=== PATIENT | female | born 1965 | race Caucasian/White ===

== ENCOUNTER 2020-03-01 08:14 | Outpatient (CLI) | payer MEDICARE, SELFPAY ==
--- NOTE | 2020-03-01 08:17 | ECG_ITS ---
Measurements Intervals [place] Rate: 84 P: 44 MA: 124 QRS: -5 QRSD: 86 T: 34 QT: 355 QTc: 422 Interpretive Statements SINUS RHYTHM EARLY PRECORDIAL R/S TRANSITION BASELINE ARTIFACT- II, III, AVR, AVL, AVF BORDERLINE ECG Electronically Signed On 03-01-2020 8:49:14 CDT by El Peters D.O.
== END 2020-03-01 08:15 | disposition home or self-care (01) ==
PROVIDERS: PCP Family Medicine; Visit Provider Obstetrics & Gynecology
DX: I10 Essential (primary) hypertension (principal); R94.31 Abnormal electrocardiogram [ECG] [EKG]
CPT/HCPCS: 93005

== ENCOUNTER 2020-03-07 00:49 | Outpatient (CLI) | payer MEDICARE, SELFPAY ==
[2020-03-09 13:29] LABS: SARS-CoV-2 RNA PCR Negative
== END 2020-03-07 00:50 | disposition home or self-care (01) ==
LOC: ANHIMG 00:50
PROVIDERS: Obstetrics & Gynecology; PCP Family Medicine; Visit Provider Family Medicine
DX: Z01.812 Encounter for preprocedural laboratory examination (principal); Z11.59 Encounter for screening for other viral diseases
CPT/HCPCS: 87635; C9803; U0003

== ENCOUNTER 2020-03-09 08:45 | Outpatient (CLI) | payer MEDICARE, SELFPAY ==
[2020-03-09 18:06] LABS: SARS-CoV-2 RNA PCR Negative
== END 2020-03-09 09:30 | disposition home or self-care (01) ==
PROVIDERS: PCP Family Medicine; Visit Provider Obstetrics & Gynecology
DX: Z01.812 Encounter for preprocedural laboratory examination (principal); Z11.59 Encounter for screening for other viral diseases
CPT/HCPCS: 87635; C9803; U0003

== ENCOUNTER 2020-03-11 02:03 | Day surgery (SDC) | payer MEDICARE, SELFPAY ==
[2020-02-25 14:03] VITALS: BMI 28.3
--- NOTE | 2020-03-11 10:07 | WPDANESEPPF ---
Anes - Initial Pre Proc Eval Procedure: Operation Date: 03/11/20 11:30 Proposed Procedures p Hysteroscopy, Dilation and Curettage - Luis Manuel Ridley MD Date/Time: 03/11/20 10:07 Surgeon: Luis Manuel Ridley MD Pre Op Diagnosis: menometrorrhagia Patient Data Age: 54 Gender: F Height: 5 ft 3 in Weight: 72.57 kg Allergies Allergy/AdvReac Type Severity Reaction Status Date / Time No Known Allergies Allergy Verified 02/25/20 14:04 Home Medications Medication Instructions Recorded Confirmed Type amlodipine 5 mg tablet 5 mg PO DAILY 11/12/19 03/11/20 History escitalopram oxalate 20 mg tablet 20 mg PO DAILY 11/12/19 03/11/20 History lorazepam 1 mg tablet 1 mg PO TID PRN 11/12/19 03/11/20 History ziprasidone HCl 40 mg capsule 40 mg PO .QHS cap 11/12/19 02/25/20 History ziprasidone HCl 80 mg capsule 80 mg PO QAM cap 11/12/19 02/25/20 History zolpidem 10 mg tablet 10 mg PO HS tablet 11/12/19 02/25/20 History atorvastatin 20 mg tablet 20 mg PO DAILY #90 tablet 02/02/20 02/25/20 Rx quinapril 40 mg tablet 40 mg PO DAILY #90 tablet 02/02/20 02/25/20 Rx aspirin 81 mg PO DAILY 02/25/20 03/11/20 History biotin 1,000 mcg PO DAILY 02/25/20 03/11/20 History cholecalciferol (vitamin D3) 50 mcg PO DAILY 02/25/20 02/25/20 History [Vitamin D3] flaxseed oil 1,000 mg PO DAILY 02/25/20 02/25/20 History multivitamin 2 tablet PO DAILY 02/25/20 03/11/20 History quinapril 20 mg PO QPM 02/25/20 02/25/20 History vitamin E 1,000 unit PO DAILY 02/25/20 02/25/20 History Patient hx anesthesia problems: none Family hx anesthesia problems: none PMFSH Past Medical History Medical History (Updated 03/11/20 @ 10:03 by Obinna Zelaya MD) Bipolar affective disorder, current episode mixed Essential hypertension Pure hypercholesterolemia Family History Family History (Updated 03/30/16 @ 23:19 by DOCTOR UNKNOWN) Mother Family history of malignant neoplasm of breast in first degree relative Social History Social History (Updated 11/13/19 @ 08:06 by Jacqueline Lakhani) Smoking status: Never smoker Second hand tobacco smoke exposure: No Alcohol intake: current Substance use: never Substance use type: does not use Gender identity (if verbalized by the patient): Female Anes - Eval Final PreProcedure Day of Procedure 03/11/20 10:07 Patient weight: normal Heart: regular rate and rhythm Lungs: clear to auscultation Airway: Mallampati scale class II Neurological: alert and oriented Last oral intake: >/= 8 hours ASA classification: II Emergent: no Anesthetic plan: proceed Anesthesia type and monitoring: general GIVS and standard monitoring Informed Consent: The patient's anesthetic plan and its attendant risks and benefits were discussed with the patient/family/POA. Questions were solicited and answers provided to the satisfaction of the patient/family/POA.
[2020-03-11 10:08] VITALS: BP 116/67; PULSE 89; RESP 18; TEMP 36.8; O2SAT 91
[2020-03-11] MEDS: ACETAMINOPHEN 500 MG TABLET 1000 MG PO (10:10)
[2020-03-11] MEDS: LACTATED RINGERS 1,000 ML 30 ML IV CONT (10:10)
--- NOTE | 2020-03-11 11:19 | PM.IMHP ---
H&P: HPI History of Present Illness Chief complaint: menometrorrhagia Narrative: Danuta Baker is a 54 year old female presents for hysteroscopic evaluation of endometrial abnormality found on ultrasound. Ultrasound was ordered due to enlarged uterus on exam though she has had no bleeding or any other significant pain. She also is known to have bicornuate uterus though the irregularity of the endometrial cavity does still need to be evaluated with hysteroscopic exam. Review of Systems Review of Systems: All systems reviewed & are unremarkable except as noted in HPI and below PMFSH Past Medical History Medical History Bipolar affective disorder, current episode mixed Essential hypertension Pure hypercholesterolemia Family History Family History Mother Family history of malignant neoplasm of breast in first degree relative Social History Social History Smoking status: Never smoker Second hand tobacco smoke exposure: No Alcohol intake: current Substance use: never Substance use type: does not use Gender identity (if verbalized by the patient): Female Meds Home Medications and Allergies Home Medications Medication Instructions Recorded Confirmed Type amlodipine 5 mg tablet 5 mg PO DAILY 11/12/19 03/11/20 History escitalopram oxalate 20 mg tablet 20 mg PO DAILY 11/12/19 03/11/20 History lorazepam 1 mg tablet 1 mg PO TID PRN 11/12/19 03/11/20 History ziprasidone HCl 40 mg capsule 40 mg PO .QHS cap 11/12/19 02/25/20 History ziprasidone HCl 80 mg capsule 80 mg PO QAM cap 11/12/19 02/25/20 History zolpidem 10 mg tablet 10 mg PO HS tablet 11/12/19 02/25/20 History atorvastatin 20 mg tablet 20 mg PO DAILY #90 tablet 02/02/20 02/25/20 Rx quinapril 40 mg tablet 40 mg PO DAILY #90 tablet 02/02/20 02/25/20 Rx aspirin 81 mg PO DAILY 02/25/20 03/11/20 History biotin 1,000 mcg PO DAILY 02/25/20 03/11/20 History cholecalciferol (vitamin D3) 50 mcg PO DAILY 02/25/20 02/25/20 History [Vitamin D3] flaxseed oil 1,000 mg PO DAILY 02/25/20 02/25/20 History multivitamin 2 tablet PO DAILY 02/25/20 03/11/20 History quinapril 20 mg PO QPM 02/25/20 02/25/20 History vitamin E 1,000 unit PO DAILY 02/25/20 02/25/20 History Allergies Allergy/AdvReac Type Severity Reaction Status Date / Time No Known Allergies Allergy Verified 02/25/20 14:04 Vital Signs Vital Signs - 24 hr 03/11/20 10:08 Temperature 36.8 C Pulse Rate 89 Respiratory Rate 18 Blood Pressure 116/67 Pulse Oximetry 91 Exam Const: General: no acute distress Resp: Auscultation: clear to auscultation bilaterally Cardio: Rate: regular rate Rhythm: regular rhythm GI: GI Palp: Yes Soft to palpation : External Female Exam: normal external appearance Other: Uterus adnexa without abnormality. Assessment and Plan Assessment and plan (1) Abnormal endometrial ultrasound: Code(s): R93.5 - Abnormal findings on diagnostic imaging of other abdominal regions, including retroperitoneum Status: Acute Additional Plan Hysteroscopy with tissue sampling.
[2020-03-11] MEDS: ceFAZolin 2 GM/D5W 50 ML 2 GM/50 ML BAG IVPB (11:28)
[2020-03-11] MEDS: KETOROLAC 30 MG/ML VIAL (*BKC) IV PUSH (11:46)
--- NOTE | 2020-03-11 11:50 | PM.OP ---
Procedure Note - Brief Procedure Note - Brief Date of procedure: 03/11/20 Pre-op diagnosis: menometrorrhagia Endometrial abnormality Post-op diagnosis: same Procedure performed: Hysteroscopy with uterine curettings Description of procedure: Patient prepped and draped in usual manner for this procedure cervix was dilated to allow the hysteroscope to be placed which did reveal atrophic endometrial cavity there was some scarring throughout. Also a bicornuate uterus was noted. Curettings were obtained at this point seizure was considered terminated patient are procedure well sent to recovery room in stable condition. Anesthesia: GLMA Surgeon: Luis Manuel Ridley MD Estimated blood loss (mL): 5 Drains: No Packing: No Pathology: yes Complications: No immediate complications Condition: stable Disposition: PACU Findings: Atrophic endometrial cavity with bicornuate uterus noted. Also some evidence of scarring though no specific abnormalities were appreciated.
[2020-03-11 11:56] VITALS: BP 112/61; PULSE 66; RESP 16; O2SAT 96
[2020-03-11 12:25] VITALS: BP 113/67; PULSE 67; RESP 16; O2SAT 100
[2020-03-11 12:50] VITALS: BP 121/70; PULSE 70; RESP 18
--- NOTE | 2020-03-11 14:01 | SUR.PHASEII ---
1230; PT'S MOTHER CALLED. STATES SHE HAS NOT HEARD FROM DR ROBERTS TODAY. UPDATED THAT PT WAS AWAKE AND ALERT AND READY TO GO HOME. 1235; GABY GOMEZ RN CALLED DR ROBERTS, HE WILL SPEAK TO PT IN THE OFFICE AT HER POST OP VISIT. PT AND MOTHER NOTIFIED. 1300; PT DRESSED. INSTRUCTIONS GIVEN. DENIES PAIN OR NAUSEA.
== END 2020-03-11 13:00 | disposition home or self-care (01) ==
PROVIDERS: PCP Family Medicine; Visit Provider Obstetrics & Gynecology
PROC: 0U5B8ZZ Destruction of Endometrium, Via Natural or Artificial Opening Endoscopic (ICD-10-PCS; CPT 58563; principal; 2020-03-11 11:30)
DX: N92.1 Excessive and frequent menstruation with irregular cycle (principal); Q51.3 Bicornate uterus; I10 Essential (primary) hypertension; E78.00 Pure hypercholesterolemia, unspecified; F31.60 Bipolar disorder, current episode mixed, unspecified; Z79.82 Long term (current) use of aspirin
CPT/HCPCS: 58558; 88305; A9270; J0690; J1885; J2250; J2405; J2704; J3010; J7030; J7120

== ENCOUNTER 2020-03-17 09:21 | Outpatient (CLI) | payer MEDICARE, SELFPAY ==
--- NOTE | ~2020-03-17 | MM_ITS ---
EXAMINATION: MM screening [facility] BI w nikole HISTORY: Screening mammogram, family history of breast cancer in her mother. TECHNIQUE: Craniocaudal and mediolateral oblique 3-D tomosynthesis images were obtained and synthetic 2-D images were generated. CAD analysis was submitted and interpreted. COMPARISON: 02/19/2019, 02/14/2018, 02/12/2017 BREAST PARENCHYMAL COMPOSITION: There are scattered areas of fibroglandular density. FINDINGS: There is no evidence of suspicious mass, calcification, or architectural distortion to sugg est malignancy in either breast. There has been no suspicious interval change. IMPRESSION: 1. No mammographic evidence of malignancy. 2. Recommend routine screening mammography in one year. BI-RADS Category 1: Negative Reviewed, dictated and finalized at location A.
== END 2020-03-17 09:22 | disposition home or self-care (01) ==
LOC: ANHIMG 09:23
PROVIDERS: PCP Family Medicine; Visit Provider Family Medicine
DX: Z12.31 Encounter for screening mammogram for malignant neoplasm of breast (principal)
CPT/HCPCS: 77063; 77067

== ENCOUNTER 2021-03-21 09:15 | Outpatient (CLI) | payer MEDICARE, SELFPAY ==
--- NOTE | ~2021-03-21 | MM_ITS ---
EXAMINATION: MM screening [facility] BI w nikole HISTORY: Screening TECHNIQUE: Craniocaudal and mediolateral oblique 3-D tomosynthesis images were obtained and synthetic 2-D images were generated. CAD analysis was submitted and interpreted. COMPARISON: Comparison to multiple prior studies sequentially, with oldest reviewed study dated 10/2014. BREAST PARENCHYMAL COMPOSITION: There are scattered areas of fibroglandular density. FINDINGS: There is no evidence of suspicious mass, calcification, or architectural distortion to sugg est malignancy in either breast. There has been no suspicious interval change. IMPRESSION: 1. No mammographic evidence of malignancy. 2. Recommend routine screening mammography in one year. BI-RADS Category 1: Negative Reviewed, dictated and finalized at location A.
== END 2021-03-21 09:16 | disposition home or self-care (01) ==
PROVIDERS: PCP Family Medicine; Visit Provider Family Medicine
DX: Z12.31 Encounter for screening mammogram for malignant neoplasm of breast (principal)
CPT/HCPCS: 77063; 77067

== ENCOUNTER 2022-05-03 15:18 | Outpatient (CLI) | payer MEDICARE, SELFPAY ==
--- NOTE | ~2022-05-03 | MM_ITS ---
EXAMINATION: MM screening [facility] BI w nikole HISTORY: Screening mammogram, family history of breast cancer in her mother. TECHNIQUE: Craniocaudal and mediolateral oblique 3-D tomosynthesis images were obtained and synthetic 2-D images were generated. CAD analysis was submitted and interpreted. COMPARISON: 03/21/2021, 03/17/2020, 02/19/2019 BREAST PARENCHYMAL COMPOSITION: There are scattered areas of fibroglandular density. FINDINGS: There is no suspicious mass, calcification, or architectural distortion to suggest malignan cy in either breast. There has been no suspicious interval change. IMPRESSION: 1. No mammographic evidence of malignancy. 2. Recommend routine screening mammography in one year. BI-RADS Category 1: Negative Reviewed, dictated and finalized at location A.
== END 2022-05-03 15:19 | disposition home or self-care (01) ==
PROVIDERS: PCP Family Medicine; Visit Provider Obstetrics & Gynecology
DX: Z12.31 Encounter for screening mammogram for malignant neoplasm of breast (principal)
CPT/HCPCS: 77063; 77067

== ENCOUNTER 2022-10-15 12:43 | Outpatient (CLI) | payer OTHER, SELFPAY ==
--- NOTE | ~2022-10-15 | MMUS_ITS ---
EXAMINATION: MM diagnostic [facility] LT w nikole, US breast LT limited HISTORY: Left breast mass at 12:00-1:00 TECHNIQUE: ML, MLO and CC 3-D tomosynthesis images of the left breast were performed and synthetic 2- D images were generated. CAD analysis was submitted and interpreted. High resolution upper outer quad rant left breast ultrasound examination from 12 o'clock to 3:00 was performed. COMPARISON: 05/03/2022, 03/21/2021 bilateral screening mammogram examinations BREAST PARENCHYMAL COMPOSITION: There are scattered areas of fibroglandular density. FINDINGS: MAMMOGRAPHIC FINDINGS: No suspicious mass or architectural distortion, malignant calcification, skin thickening or retractio n or significant new or developing density is detected. ULTRASOUND: No suspicious mass, shadowing, cyst or other significant sonographic finding is noted in the upper-ou ter quadrant of the left breast from 12:00 to 3:00. IMPRESSION: 1. No mammographic evidence of malignancy, left breast 2. Routine mammographic screening is recommended BI-RADS Category 1: Negative Reviewed, dictated and finalized at location A. RBARIC TECHNOLOGIST IMPRESSION: 1. No mammographic evidence of malignancy, left breast 2. Routine mammographic screening is recommended BI-RADS Category 1: Negative
== END 2022-10-15 12:44 | disposition home or self-care (01) ==
LOC: ANHIMG 12:44
PROVIDERS: PCP Family Medicine; Visit Provider Obstetrics & Gynecology
DX: N63.21 Unspecified lump in the left breast, upper outer quadrant (principal)
CPT/HCPCS: 76642; 77061; 77065; G0279

== ENCOUNTER 2023-05-30 14:41 | Outpatient (CLI) | payer OTHER, SELFPAY ==
--- NOTE | ~2023-05-30 | MM_ITS ---
EXAMINATION: MM screening [facility] BI w nikole HISTORY: Screening mammogram TECHNIQUE: Craniocaudal and mediolateral oblique 3-D tomosynthesis images were obtained and synthetic 2-D images were generated. CAD analysis was submitted and interpreted. COMPARISON: October 15, 2022 diagnostic left mammogram and limited left breast ultrasound 05/03/2022, 03/21/2021 bilateral screening mammogram examinations BREAST PARENCHYMAL COMPOSITION: The breasts are almost entirely fatty. FINDINGS: There is no evidence of suspicious mass, calcification, or architectural distortion to sugg est malignancy in either breast. There has been no suspicious interval change. IMPRESSION: 1. No mammographic evidence of malignancy. 2. Recommend routine screening mammography in one year. BI-RADS Category 1: Negative Reviewed, dictated and finalized at location A.
== END 2023-05-30 14:42 | disposition home or self-care (01) ==
PROVIDERS: PCP Family Medicine; Visit Provider Obstetrics & Gynecology
DX: Z12.31 Encounter for screening mammogram for malignant neoplasm of breast (principal)
CPT/HCPCS: 77063; 77067

== ENCOUNTER 2023-08-28 00:35 | Day surgery (SDC) | payer OTHER, SELFPAY ==
[2023-08-06 15:42] VITALS: BMI 29.2
--- NOTE | 2023-08-27 11:24 | SUR.PREOP ---
Patient called regarding upcoming procedure. Reviewed preop instructions, appointment times, and procedure prep.
--- NOTE | 2023-08-27 13:27 | PM.HPGS ---
History of Present Illness History of Present Illness Consent: Risks, benefits, and alternatives have been discussed and questions answered. Patient agrees to proceed with procedure. Chief complaint: hx of colonic polyps Narrative: Danuta Baker is a 57 year old female Who was referred for colon cancer screening. Five years ago she had in adenomatous polyp removed. She also has been treated for diverticulitis within the past year. Review of Systems Review of Systems: All systems reviewed & are unremarkable except as noted in HPI and below PMFSH Past Medical History Medical History Anxiety Bipolar affective disorder, current episode mixed Bipolar disorder Essential hypertension History of colon polyps Pure hypercholesterolemia Screening mammogram, encounter for Skin cancer of arm (02/25/19) (R) arm--removed, margins clear Surgical History Surgical History History of (1994) PROM History of dilation and curettage (03/11/20) menometrorrhagia History of endometrial ablation (08/18/20) irregular vaginal bleeding History of tubal ligation (~1995) Family History Family History Mother Family history of malignant neoplasm of breast in first degree relative Social History Social History Social History: Smoking status: Never smoker Second hand tobacco smoke exposure: No Alcohol intake: current Alcohol use details: once a month Substance use: never Substance use type: does not use Living arrangements: with family Additional living arrangements comments: 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 Gender identity (if verbalized by the patient): Female Sexual Orientation (if Verbalized by the Patient): Straight or Heterosexual Spiritual care concerns: No Meds Home Medications and Allergies Home Medications Medication Instructions Recorded Confirmed Type escitalopram oxalate 20 mg tablet 20 mg PO DAILY 11/12/19 08/28/23 History (Lexapro) lorazepam 1 mg tablet (Ativan) 1 mg PO TID PRN Anxiety 11/12/19 08/28/23 History ziprasidone HCl 40 mg capsule 40 mg PO .QHS 11/12/19 08/28/23 History (Geodon) ziprasidone HCl 80 mg capsule 80 mg PO QAM 11/12/19 08/28/23 History (Geodon) zolpidem 10 mg tablet (Ambien) 10 mg PO HS 11/12/19 08/28/23 History biotin 1,000 mcg chewable tablet 1,000 mcg PO DAILY 02/25/20 08/28/23 History cholecalciferol (vitamin D3) 50 50 mcg PO DAILY 02/25/20 08/28/23 History mcg (2,000 unit) capsule (Vitamin D3) flaxseed oil 1,000 mg capsule 1,000 mg PO DAILY 02/25/20 08/28/23 History multivitamin 2 tablet PO DAILY 02/25/20 08/28/23 History losartan 100 mg tablet 100 mg PO DAILY #90 tabs 02/25/23 08/28/23 Rx atorvastatin 20 mg tablet See Rx Instructions .Route 04/01/23 08/28/23 Rx .COMPLEX #100 tabs amlodipine 5 mg tablet (Norvasc) 5 mg PO DAILY #90 tabs 08/05/23 08/28/23 Rx Allergies Allergy/AdvReac Type Severity Reaction Status Date / Time No Known Allergies Allergy Verified 08/28/23 09:09 Exam Const: General: alert Orientation/consciousness: patient oriented x3 Resp: Auscultation: clear to auscultation bilaterally Cardio: Rhythm: regular rhythm GI: GI Palp: Yes Soft to palpation and No Tenderness to palpation present (GI) Neuro: General: patient oriented x3 Assessment and Plan Assessment and plan (1) Colon cancer screening: Code(s): Z12.11 - Encounter for screening for malignant neoplasm of colon Status: Acute Assessment and Plan: Colonoscopy with possible biopsy or polypectomy or cautery or injection of substances.
[2023-08-28 09:11] VITALS: BP 123/73; PULSE 83; RESP 18; TEMP 36.8; O2SAT 98
[2023-08-28] MEDS: LACTATED RINGERS 1,000 ML 150 ML IV CONT (09:22)
--- NOTE | 2023-08-28 09:41 | WPDANESEPPF ---
Anes - Initial Pre Proc Eval Procedure: Operation Date: 08/28/23 10:30 Proposed Procedures p Colonoscopy - Bhavik Trujillo MD Date/Time: 08/28/23 09:41 Surgeon: Bhavik Trujillo MD Pre Op Diagnosis: hx of colonic polyps Patient Data Age: 57 Gender: F Height: 1.6 m Weight: 77 kg Last Vital Signs Temp 98.3 F 08/28/23 09:11 Pulse 83 08/28/23 09:11 Resp 18 08/28/23 09:11 BP 123/73 08/28/23 09:11 Pulse Ox 98 08/28/23 09:11 O2 Del Method Room Air 08/28/23 09:11 Allergies Allergy/AdvReac Type Severity Reaction Status Date / Time No Known Allergies Allergy Verified 08/28/23 09:09 Home Medications Medication Instructions Recorded Confirmed Type escitalopram oxalate 20 mg tablet 20 mg PO DAILY 11/12/19 08/28/23 History (Lexapro) lorazepam 1 mg tablet (Ativan) 1 mg PO TID PRN Anxiety 11/12/19 08/28/23 History ziprasidone HCl 40 mg capsule 40 mg PO .QHS 11/12/19 08/28/23 History (Geodon) ziprasidone HCl 80 mg capsule 80 mg PO QAM 11/12/19 08/28/23 History (Geodon) zolpidem 10 mg tablet (Ambien) 10 mg PO HS 11/12/19 08/28/23 History biotin 1,000 mcg chewable tablet 1,000 mcg PO DAILY 02/25/20 08/28/23 History cholecalciferol (vitamin D3) 50 50 mcg PO DAILY 02/25/20 08/28/23 History mcg (2,000 unit) capsule (Vitamin D3) flaxseed oil 1,000 mg capsule 1,000 mg PO DAILY 02/25/20 08/28/23 History multivitamin 2 tablet PO DAILY 02/25/20 08/28/23 History losartan 100 mg tablet 100 mg PO DAILY #90 tabs 02/25/23 08/28/23 Rx atorvastatin 20 mg tablet See Rx Instructions .Route 04/01/23 08/28/23 Rx .COMPLEX #100 tabs amlodipine 5 mg tablet (Norvasc) 5 mg PO DAILY #90 tabs 08/05/23 08/28/23 Rx Patient hx anesthesia problems: none Family hx anesthesia problems: none Results Review: All pre-operative results and documents have been reviewed as part of the pre-operative evaluation. [facility] Past Medical History Medical History (Updated 08/27/23 @ 13:27 by Bhavik Trujillo MD) Anxiety Bipolar affective disorder, current episode mixed Bipolar disorder Essential hypertension History of colon polyps Pure hypercholesterolemia Screening mammogram, encounter for Skin cancer of arm (02/25/19) (R) arm--removed, margins clear Surgical History Surgical History History of (1994) PROM History of dilation and curettage (03/11/20) menometrorrhagia History of endometrial ablation (08/18/20) irregular vaginal bleeding History of tubal ligation (~1995) Family History Family History Mother Family history of malignant neoplasm of breast in first degree relative Social History Social History Social History: Smoking status: Never smoker Second hand tobacco smoke exposure: No Alcohol intake: current Alcohol use details: once a month Substance use: never Substance use type: does not use Living arrangements: with family Additional living arrangements comments: 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 Gender identity (if verbalized by the patient): Female Sexual Orientation (if Verbalized by the Patient): Straight or Heterosexual Spiritual care concerns: No Anes - Eval Final PreProcedure Day of Procedure 08/28/23 09:41 Patient weight: obese Heart: regular rate and rhythm Lungs: clear to auscultation Airway: Mallampati scale class II Neurological: alert and oriented Last oral intake: >/= 8 hours ASA classification: II Emergent: no Anesthetic plan: proceed Anesthesia type and monitoring: general GIVS and standard monitoring Results Review: All pre-operative results and documents have been reviewed as part of the pre-operative evaluation. Informed Consent: The patient's anesthetic plan and its attendan
[2023-08-28 10:43] VITALS: BP 90/49; PULSE 64; RESP 20; O2SAT 97
[2023-08-28 10:53] VITALS: BP 94/58; PULSE 67; RESP 18; O2SAT 98
[2023-08-28 11:03] VITALS: BP 112/77; PULSE 65; RESP 24; O2SAT 100
== END 2023-08-28 11:11 | disposition home or self-care (01) ==
PROVIDERS: PCP Family Medicine; Visit Provider Internal Medicine Gastroenterology
PROC: 0DJD8ZZ Inspection of Lower Intestinal Tract, Via Natural or Artificial Opening Endoscopic (ICD-10-PCS; CPT 45378; principal; 2023-08-28 10:30)
DX: Z12.11 Encounter for screening for malignant neoplasm of colon (principal); D12.5 Benign neoplasm of sigmoid colon; K64.8 Other hemorrhoids; K57.30 Diverticulosis of large intestine without perforation or abscess without bleeding; I10 Essential (primary) hypertension; F41.9 Anxiety disorder, unspecified; E78.00 Pure hypercholesterolemia, unspecified; F31.60 Bipolar disorder, current episode mixed, unspecified; Z85.828 Personal history of other malignant neoplasm of skin; Z80.3 Family history of malignant neoplasm of breast; E66.9 Obesity, unspecified; Z68.30 Body mass index [BMI] 30.0-30.9, adult
CPT/HCPCS: 45385; 88305; J2704; J7120

== ENCOUNTER 2023-09-12 02:14 | Day surgery (SDC) | payer OTHER, SELFPAY ==
[2023-09-10 12:09] VITALS: BMI 29.2
--- NOTE | 2023-09-10 12:14 | PC.NURSE ---
Report to the Outpatient Waiting Room, entrance under the green pavilion located off [facility], at time 0830 on date 09/12/23. Planned Procedure Time: 1030. Time changes happen often and if your time is changed the preop area will call you the afternoon before. - You and your visitor will be asked to self-screen and do not enter if you have any COVID symptoms. - A mask is optional within the hospital at this time. Patients may have clear liquids (water, carbonated beverages, clear teas, apple juice) until 3 hours prior to surgery with a maximum of 20 ounces. - No food from midnight until time of surgery Take the following medications with a SIP of water the morning of surgery: AMLODIPINE, LEXAPRO, ZIPRASIDONE, LORAZEPAM IF NEEDED DO NOT STOP ANY OF YOUR OTHER PRESCRIPTION MEDICATIONS PRIOR TO SURGERY ?EXCEPT THE FOLLOWING Medications to discontinue per physician: VITAMINS/SUPPLEMENTS Date to take last dose: NO MORE UNTIL AFTER SURGERY FOLLOW INSTRUCTIONS FROM DR. ROBERTS REGARDING ASPIRIN Please no make-up, nail wolof, hairspray, perfume, deodorant, or body powder the day of surgery. No jewelry (including any body piercings) or valuables the day of surgery, leave them at home. Please take a shower or bath the night before, or the morning of, surgery with an antibacterial soap. Wear comfortable, loose fitting clothing. - Jewelry must be removed prior to entering the operating room. Rings and piercings that are not removed may be cut off. - The hospital will not accept responsibility for valuables. - Please leave all valuables, including medications, at home the day of surgery. If you are going home after surgery, a licensed assembly line driver must drive you home. - NO public transportation without another adult if you receive anesthesia. - We recommend that an adult stay with you for 24 hours following discharge. - We also recommend that you do not drive, make important decision, drink alcoholic beverages, or take any drugs that were not prescribed by your health care provider for at least 24 hours after your discharge time. Follow any additional instructions given to you from your surgeon. If you or anyone in your household have experienced Covid symptoms in the past week, please notify your surgeon or the nurse liaison at the phone number below for possible testing. Telephone instructions given to PT - NICK HORN and asked if any additional questions and then verbalized understanding. Patient advised to call surgeon office or pre surgery nurse liaison [phone] if any additional questions.
--- NOTE | 2023-09-12 07:16 | WPDHPUPDATE1 ---
History and Physical Update Update Date/Time: 09/12/23 07:16 Proceed with hystereoscopy/D&C/uterine curettings History and Physical has been reviewed, including an updated exam of the patient. There are NO changes in the patient's condition. Risks, benefits, and alternatives have been discussed and questions answered. Patient agrees to proceed with procedure.
[2023-09-12 09:04] LABS: Hematocrit 41.5 % (37.0-47.0); Hemoglobin 13.6 g/dL (12.0-15.0); Mean Corpuscular HGB Conc 32.8 g/dl (32-36); Mean Corpuscular Volume 88.5 fl (80-100); Mean Platelet Volume 10.6 fl (7.4-10.4); Platelet Count Result 264 k/mm3 (150-375); Red Blood Count 4.69 M/mm3 (4.2-5.4); Red Cell Distribution Width 14.1 % (11.5-14.5); White Blood Count 5.7 K/mm3 (4.5-10.0)
[2023-09-12] MEDS: ACETAMINOPHEN 500 MG TABLET 1000 MG PO (09:20)
[2023-09-12] MEDS: LACTATED RINGERS 1,000 ML 30 ML IV CONT (09:20)
[2023-09-12 10:03] VITALS: BP 120/64; PULSE 75; RESP 14; TEMP 36.9; O2SAT 98
--- NOTE | 2023-09-12 10:38 | WPDANESEPPF ---
Anes - Initial Pre Proc Eval Procedure: Operation Date: 09/12/23 10:30 Proposed Procedures p Hysteroscopy Dilation and Curettage - Luis Manuel Ridley MD Date/Time: 09/12/23 10:38 Surgeon: Luis Manuel Ridley MD Pre Op Diagnosis: post menopausal bleeding Patient Data Age: 57 Gender: F Height: 1.6 m Weight: 75.4 kg Last Vital Signs Temp 36.9 C 09/12/23 10:03 Pulse 75 09/12/23 10:03 Resp 14 09/12/23 10:03 BP 120/64 09/12/23 10:03 Pulse Ox 98 09/12/23 10:03 O2 Del Method Room Air 09/12/23 10:03 Allergies Allergy/AdvReac Type Severity Reaction Status Date / Time No Known Allergies Allergy Verified 09/12/23 10:07 Home Medications Medication Instructions Recorded Confirmed Type escitalopram oxalate 20 mg tablet 20 mg PO DAILY 11/12/19 09/12/23 History (Lexapro) lorazepam 1 mg tablet (Ativan) 1 mg PO TID PRN Anxiety 11/12/19 09/12/23 History ziprasidone HCl 40 mg capsule 40 mg PO .QHS 11/12/19 09/10/23 History (Geodon) ziprasidone HCl 80 mg capsule 80 mg PO QAM 11/12/19 09/10/23 History (Geodon) zolpidem 10 mg tablet (Ambien) 10 mg PO HS 11/12/19 09/10/23 History biotin 1,000 mcg chewable tablet 1,000 mcg PO DAILY 02/25/20 09/10/23 History cholecalciferol (vitamin D3) 50 50 mcg PO DAILY 02/25/20 09/10/23 History mcg (2,000 unit) capsule (Vitamin D3) flaxseed oil 1,000 mg capsule 1,000 mg PO DAILY 02/25/20 09/10/23 History multivitamin 2 tablet PO DAILY 02/25/20 09/10/23 History atorvastatin 20 mg tablet See Rx Instructions .Route 04/01/23 09/12/23 Rx .COMPLEX #100 tabs amlodipine 5 mg tablet (Norvasc) 5 mg PO DAILY #90 tabs 08/05/23 09/10/23 Rx losartan 100 mg tablet 100 mg PO DAILY #90 tabs 09/09/23 09/10/23 Rx aspirin 81 mg tablet,delayed 81 mg PO DAILY 09/10/23 09/10/23 History release (Adult Low Dose Aspirin) Laboratory Tests 09/12/23 08:58 WBC 5.7 K/mm3 (4.5-10.0) RBC 4.69 M/mm3 (4.2-5.4) Hgb 13.6 g/dL (12.0-15.0) Hct 41.5 % (37.0-47.0) MCV 88.5 fl (80-100) MCH 29.0 pg (26-34) MCHC 32.8 g/dl (32-36) RDW 14.1 % (11.5-14.5) Plt Count 264 k/mm3 (150-375) MPV 10.6 H fl (7.4-10.4) Patient hx anesthesia problems: none Family hx anesthesia problems: none Results Review: All pre-operative results and documents have been reviewed as part of the pre-operative evaluation. [facility] Past Medical History Medical History Anxiety Bipolar affective disorder, current episode mixed Bipolar disorder Essential hypertension History of colon polyps Pure hypercholesterolemia Screening mammogram, encounter for Skin cancer of arm (02/25/19) (R) arm--removed, margins clear Surgical History Surgical History History of (1994) PROM History of dilation and curettage (03/11/20) menometrorrhagia History of endometrial ablation (08/18/20) irregular vaginal bleeding History of tubal ligation (~1995) Family History Family History Mother Family history of malignant neoplasm of breast in first degree relative Social History Social History Social History: Smoking status: Never smoker Second hand tobacco smoke exposure: No Alcohol intake: current Alcohol use details: 2/MONTH Substance use: never Substance use type: does not use Living arrangements: with family Additional living arrangements comments: 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 Gender identity (if verbalized by the patient): Female Sexual Orientation (if Verbalized by the Patient): Straight or Heterosexual Spiritual care concerns: No Anes - Eval Final PreProcedure Day of Procedure 09/12/23 10:38 Patient
[2023-09-12 11:45] VITALS: BP 93/43; PULSE 70; RESP 16; O2SAT 97
--- NOTE | 2023-09-12 11:51 | W.PM.PROC2 ---
Procedure Note - Detailed Date of Procedure 09/12/23 Pre-op Diagnosis post menopausal bleeding Post-op Diagnosis Same Procedure Performed 1. Hysteroscopy 2. Uterine curettings Surgeon Luis Manuel Ridley MD Anesthesia MAC Findings atrophic endometrium, septum noted Description of Procedure patient prepped and draped in usual manner for this procedure. Hysteroscope was placed and was placed through the endocervical cavity, tomato cavity appeared atrophic with uterine septum noted. Curettings were then obtained with scant tissue removed. Small amount of oozing was noted, hysteroscope again place with no abnormalities or defect noted, packing was placed in vagina and will be removed in recovery room. Estimated Blood Loss 100 Drains No Packing Yes Pathology Yes Complications No immediate complications Condition Stable Disposition PACU [facility] Billing Surgery - Charge Forward: Surgery Billing
[2023-09-12 12:05] VITALS: BP 94/46; PULSE 59; RESP 16; O2SAT 99
--- NOTE | 2023-09-12 12:17 | SUR.PHASEII ---
Dr. Ridley at bedside to eval pt. vaginal packing removed minimal bleeding noted. Dr. Ridley aware.
[2023-09-12 12:20] VITALS: BP 109/65; PULSE 58; RESP 16; O2SAT 100
[2023-09-12 12:46] VITALS: BP 127/72; PULSE 58
== END 2023-09-12 12:49 | disposition home or self-care (01) ==
PROVIDERS: PCP Family Medicine; Visit Provider Obstetrics & Gynecology
PROC: 0U5B8ZZ Destruction of Endometrium, Via Natural or Artificial Opening Endoscopic (ICD-10-PCS; CPT 58563; principal; 2023-09-12 10:30)
DX: N95.0 Postmenopausal bleeding (principal); I10 Essential (primary) hypertension; E78.00 Pure hypercholesterolemia, unspecified; F31.60 Bipolar disorder, current episode mixed, unspecified; F41.9 Anxiety disorder, unspecified
CPT/HCPCS: 58558; 36415; 85027; 88305; A9270; J2250; J2405; J2704; J3010; J7120

== ENCOUNTER 2025-02-20 18:38 | Emergency (ER) | payer OTHER, SELFPAY ==
[2025-02-20 18:45] VITALS: BP 130/79; PULSE 69; RESP 16; TEMP 36.2; O2SAT 99
--- NOTE | 2025-02-20 19:15 | ED_ITS ---
HPI - General Adult General Chief complaint: Skin/Abscess/Foreign Body Stated complaint: Skin Infection Source: patient Mode of arrival: ambulatory Limitations: no limitations History of Present Illness HPI narrative: Patient presents for evaluation of redness to the right upper arm. She does skin biopsy in the area 5 days ago. Today she woke with redness to the surrounding area. She also visualized some yellow discharge. She denies any fever, chills, nausea, vomiting. She is not diabetic. She rates her pain 6/10 severity. She is currently on augmentin for a sinus infection, that she started yesterday. Related Data Home Medications ?Medication ?Instructions ?Recorded ?Confirmed ?Last Taken ?Type escitalopram oxalate 20 mg tablet 20 mg PO DAILY 11/12/19 02/19/25 09/12/23 History (Lexapro) lorazepam 1 mg tablet (Ativan) 1 mg PO TID PRN Anxiety 11/12/19 02/19/25 09/12/23 History ziprasidone HCl 40 mg capsule 40 mg PO .QHS 11/12/19 02/19/25 Unknown History (Geodon) ziprasidone HCl 80 mg capsule 80 mg PO QAM 11/12/19 02/19/25 08/28/23 07:30 History (Geodon) biotin 1,000 mcg chewable tablet 1,000 mcg PO DAILY 02/25/20 02/19/25 03/08/20 History cholecalciferol (vitamin D3) 50 50 mcg PO DAILY 02/25/20 02/19/25 Unknown History mcg (2,000 unit) capsule (Vitamin D3) flaxseed oil 1,000 mg capsule 1,000 mg PO DAILY 02/25/20 02/19/25 Unknown History multivitamin 2 tablet PO DAILY 02/25/20 02/19/25 03/08/20 History aspirin 81 mg tablet,delayed 81 mg PO DAILY 09/10/23 02/19/25 Unknown History release (Adult Low Dose Aspirin) lorazepam 0.5 mg tablet mg 02/20/25 Unknown History Allergies Allergy/AdvReac Type Severity Reaction Status Date / Time No Known Allergies Allergy Verified 02/20/25 18:44 Review of Systems Review of Systems: CONSTITUTIONAL: Denies fever, chills, or sweats. EYES: Denies visual changes, redness, or discharge. ENT: Denies rhinorrhea, congestion, sore throat, or otalgia. CARDIOVASCULAR: Denies chest pain, palpitations, or edema. RESPIRATORY: Denies cough or dyspnea. GASTROINTESTINAL: Denies abdominal pain, nausea, vomiting, or diarrhea. GENITOURINARY: Denies dysuria or hematuria. SKIN: Reports redness to right upper arm with yellow drainage. Denies rash or itching. MUSCULOSKELETAL: reports pain and right upper arm. NEUROLOGIC: Denies headache, numbness, dizziness, or weakness. PSYCHIATRIC: Denies anxiety or depression. [facility] Past Medical History Medical History Chronic insomnia History of colon polyps Screening mammogram, encounter for Anxiety Skin cancer of arm (02/25/19) (R) arm--removed, margins clear Bipolar disorder Bipolar affective disorder, current episode mixed Essential hypertension Pure hypercholesterolemia Surgical History Surgical History History of hysteroscopy (09/12/23) . Hysteroscopy/ Uterine curettings History of tubal ligation (~1995) History of (1994) PROM History of endometrial ablation (08/18/20) irregular vaginal bleeding History of dilation and curettage (03/11/20) menometrorrhagia Family History Family History Mother Family history of malignant neoplasm of breast in first degree relative Social History Social History Social History: Smoking status: Never smoker Second hand tobacco smoke exposure: No Alcohol intake: current Alcohol use details: 2/MONTH Substance use: never Substance use type: does not use Living arrangements: with family Additional living arrangements comments: 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 HEAD: Normocephalic, atraumatic. EYES: PERRLA and EOMI. ENT: Nares clear, no rhinorrhea or epistaxis. Mucous membranes moist. Oropharynx without tonsillar hypertrophy exudate or other lesions. Bilateral TMs pearly weaver nonbulging NECK: Supple. No adenopathy or masses. No carotid bruits or JVD CHEST: Clear to auscultation. No respiratory distress. No wheezes rales or rhonchi HEART: Regular rate and rhythm. No murmur heard. Normal peripheral pulses. ABDOMEN: Soft, nontender, nondistended, normal active bowel sounds. EXTREMITIES: Normal range of motion. No edema. SKIN:There is a 4mm scabbed lesion to right upper arm with 3x3cm area of surrounding erythema NEURO: No focal deficits. Alert and oriented x3. PSYCH: Normal mood and affect. Course Course Emergency Course: This is a 59-year-old female who presented for evaluation of redness to the right upper arm following a skin biopsy 5 days ago. She appears to have cellulitis. I do not appreciate any active drainage. She is already on Augmentin. Will add Bactrim. Follow-up with Dermatology and primary care provider. Go to the ER for worsening symptoms. Patient in agreement with plan of care. Level of Care: Express Care Visit Vital Signs Vital signs: Vital Signs Temperature 36.2 C L 02/20/25 18:45 Pulse Rate 69 02/20/25 18:45 Respiratory Rate 16 02/20/25 18:45 Blood Pressure 130/79 02/20/25 18:45 Pulse Oximetry 99 02/20/25 18:45 Temperature 36.2 C L 02/20/25 18:45 Pulse Rate 69 02/20/25 18:45 Respiratory Rate 16 02/20/25 18:45 Blood Pressure 130/79 02/20/25 18:45 Pulse Oximetry 99 02/20/25 18:45 Medical Decision Making Vital Signs Vital Signs: Vital Signs Temperature 36.2 C L 02/20/25 18:45 Pulse Rate 69 02/20/25 18:45 Respiratory Rate 16 02/20/25 18:45 Blood Pressure 130/79 02/20/25 18:45 Pulse Oximetry 99 02/20/25 18:45 Temperature 36.2 C L 02/20/25 18:45 Pulse Rate 69 02/20/25 18:45 Respiratory Rate 16 02/20/25 18:45 Blood Pressure 130/79 02/20/25 18:45 Pulse Oximetry 99 02/20/25 18:45 Discharge Plan Discharge Clinical Impression: Cellulitis Patient Disposition: Home Condition: Stable Instructions: Antibiotic Form, Cellulitis (ED) Additional Instructions: PLEASE CONTINUE TO TAKE AUGMENTIN PLEASE START TAKING BACTRIM WELL IF YOU HAVE THICK YELLOW/GREEN DRAINAGE, WORSENING REDNESS OR FEVER PLEASE GO TO THE EMERGENCY DEPARTMENT Patient Language: Danish Prescriptions: New sulfamethoxazole-trimethoprim [Bactrim DS] 800-160 mg tablet 1 tablet PO Q12H Qty: 20 0RF No Action lorazepam 0.5 mg tablet amoxicillin-pot clavulanate 875-125 mg tablet 1 tablet PO BID 5 Days Qty: 10 0RF aspirin [Adult Low Dose Aspirin] 81 mg tablet,delayed release (DR/EC) 81 mg PO DAILY multivitamin Tablet 2 tablet PO DAILY flaxseed oil 1,000 mg Capsule 1,000 mg PO DAILY cholecalciferol (vitamin D3) [Vitamin D3] 50 mcg (2,000 unit) Capsule 50 mcg PO DAILY biotin 1,000 mcg Tablet,Chewable 1,000 mcg PO DAILY escitalopram oxalate [Lexapro] 20 mg tablet 20 mg PO DAILY lorazepam [Ativan] 1 mg tablet 1 mg PO TID PRN (Reason: Anxiety) ziprasidone HCl [Geodon] 80 mg capsule 80 mg PO QAM Rx Instructions: give with food (meal/snack) ziprasidone HCl [Geodon] 40 mg capsule 40 mg PO .QHS Rx Instructions: give with food (meal/snack) losartan 100 mg tablet 100 mg PO DAILY Qty: 90 2RF Patient Comments: TAKES AT HS atorvastatin 20 mg tablet See Rx Instructions .ROUTE .COMPLEX Qty: 100 2RF Dose Instruction: TAKE 1 TABLET BY MOUTH DAILY Rx Instructions: TAKE 1 TABLET BY MOUTH DAILY zolpidem [Ambien] 10 mg tablet 10 mg PO HS Qty: 10 0RF amlodipine [Norvasc] 5 mg tablet 5 mg PO DAILY Qty: 90 3RF Follow-up/Referrals: Olegario Lane MD [Primary Care Provider] - Time of Disposition: 19:14
== END 2025-02-20 19:16 | disposition home or self-care (01) ==
PROVIDERS: Emergency Provider Nurse Practitioner; PCP Family Medicine
DX: L03.113 Cellulitis of right upper limb (principal); I10 Essential (primary) hypertension; Z79.899 Other long term (current) drug therapy; Z79.82 Long term (current) use of aspirin
CPT/HCPCS: 99213; G0463

== ENCOUNTER 2025-08-02 13:52 | Outpatient (CLI) | payer OTHER, SELFPAY ==
--- NOTE | ~2025-08-02 | XR_ITS ---
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 Findings: No acute fracture or malalignment. No significant degenerative changes. Soft tissues unremarkable. Impression: No acute fracture or malalignment. Reviewed, dictated and finalized at location P. R MAINTENANCE TECHNICIAN Impression: No acute fracture or malalignment.
== END 2025-08-02 13:53 | disposition home or self-care (01) ==
LOC: MICIMG 13:53
PROVIDERS: PCP Family Medicine; Visit Provider Family Medicine
DX: M25.552 Pain in left hip (principal)
CPT/HCPCS: 73502